=== PATIENT | male | born 1985 | race Caucasian/White ===

== ENCOUNTER 2020-02-12 23:12 | Emergency (ER) | payer MEDICAID, OTHER ==
[~2020-02-12] VITALS: Ht 177.8 cm; Wt 63.0 kg
--- NOTE | 2020-02-12 23:32 | NUR ---
FIRST PT CONTACT: PT WHEELED BACK TO ROOM VIA WHEELCHAIR, STOOD AND TRANSFERRED TO BED WITH SMOOTH AND STEADY GAIT, GOWN ON, RESTING ON GURNEY, PT STATES HE CAME IN TODAY DUE TO SHARP STABBING ABDOMINAL PAIN, PT STATES IT IS PERIUMBILICAL, PULSES 2+, SKIN COLOR WNL WARM AND DRY, HX OF HERNIAS, PT STATES HE HAD DIARRHEA ONCE EARLIER THIS EVENING. PT STATES THAT EARLIER THIS EVENING HE WAS AT [facility] BUT WAS REMOVED DUE TO AN ISSUE WITH THE NURSE THERE. LIBERTY GRANT AT FOR EVAL AND POC. PT PLACED ON BP, SPO2 MONITORING. VSS. CALL LIGHT ON LAP. WCTM.
[2020-02-12 23:54] LABS: BASOPHILS # (AUTO) 0.03 x10^3/uL (0-0.1); BASOPHILS % (AUTO) 0 % (0-1); EOSINOPHILS # (AUTO) 0.19 x10^3/uL (0-0.4); EOSINOPHILS % (AUTO) 2 % (1-7); LYMPHOCYTES # (AUTO) 1.78 x10^3/uL (1-3.4); LYMPHOCYTES % (AUTO) 15 % (22-44); MD NO; MEAN CORPUSCULAR HEMOGLOBIN 32.9 pg (27.5-34.5); MEAN CORPUSCULAR HGB CONC 33.4 g/dL (33.2-36.2); MEAN CORPUSCULAR VOLUME 98.6 fL (81-97); MEAN PLATELET VOLUME 10.1 fL (7.4-10.4); MONOCYTES # (AUTO) 1.01 x10^3/uL (0.2-0.8); MONOCYTES % (AUTO) 8 % (2-9); NEUTROPHILS % (AUTO) 75 % (42-75); PLATELET COUNT 191 x10^3/uL (130-400); RED BLOOD COUNT 4.75 x10^6/uL (4.38-5.82); RED CELL DISTRIBUTION WIDTH 15.3 % (9.4-14.8)
[2020-02-13] MEDS ORDERED: SODIUM CHLORIDE 0.9% 1,000ML IVBOLUS ONE
[2020-02-13] MEDS ORDERED: SODIUM CHLORIDE FLUSH 10ML SYR IVF ONE
[2020-02-13 00:03] LABS: ALANINE AMINOTRANSFERASE 19 U/L (12-78); ALBUMIN 4.2 g/dL (3.4-5.0); ANION GAP 7 mmol/L (5-15); CHLORIDE 111 mmol/L (98-107)
[2020-02-13 00:05] LABS: ALKALINE PHOSPHATASE 73 U/L (45-117); BILIRUBIN,TOTAL 0.6 mg/dL (0.2-1.0); TOTAL PROTEIN 7.2 g/dL (6.4-8.2)
[2020-02-13 00:29] VITALS: BP 95/62
--- NOTE | 2020-02-13 00:29 | NUR ---
PT CONDITION UNCHANGED, PT TALKING TO RN AND LAUGHING. PT APPEARS COMFORTABLE, NAD, VSS. CT CALLED FOR PT SCAN. WCTM.
[2020-02-13] MEDS ORDERED: OMNIPAQUE 350 MG/ML, 100ML BOTTLE ONE (00:48)
== END 2020-02-13 01:46 | disposition home or self-care (01) ==
LOC: ED 02-13 01:09
DX: R10.84 Generalized abdominal pain (principal); R19.7 Diarrhea, unspecified; Z72.9 Problem related to lifestyle, unspecified
CPT/HCPCS: 36415; 74177; 80053; 83690; 85025; 99285; Q9967